=== PATIENT | female | born 1990 | race African-American/Black ===

== ENCOUNTER 2016-11-27 10:58 | Emergency (ER) | payer SELFPAY ==
[~2016-11-27] VITALS: Ht 165.1 cm; Wt 59.0 kg
[2016-11-27] MEDS ORDERED: IBUPROFEN 800 MG TABLET PO ONE (12:30)
[2016-11-27 13:37] VITALS: BP 116/75
== END 2016-11-27 13:57 | disposition home or self-care (01) ==
LOC: EMS 11:00
DX: J02.8 Acute pharyngitis due to other specified organisms (principal); Z87.891 Personal history of nicotine dependence; Z91.013 Allergy to seafood
CPT/HCPCS: 87430; 99283